=== PATIENT | female | born 1975 | race Caucasian/White ===

== ENCOUNTER 2017-12-16 16:11 | Emergency (ER) | payer OTHER ==
[2017-12-16 16:18] VITALS: BP 109/81
== END 2017-12-16 17:43 | disposition left against medical advice (07) ==
LOC: ED 16:11
DX: R10.9 Unspecified abdominal pain (principal); R11.10 Vomiting, unspecified; Z53.21 Procedure and treatment not carried out due to patient leaving prior to being seen by health care provider

== ENCOUNTER 2017-12-24 04:22 | Inpatient (IN) | payer OTHER ==
[2017-12-24] MEDS ORDERED: NS 0.9% 1000 ML* 1,000 ML IV ONE ×2 (04:40→10:07)
[2017-12-24] MEDS ORDERED: Metoclopramide IV* 5 MG/ML 2 ML VIAL IV SLOW PU ONE (04:41)
[2017-12-24] MEDS ORDERED: Morphine INJ* 4 MG/ML 1 ML SYRINGE (NEW SYRINGE VERSION) IV ONE (04:41)
--- NOTE | 2017-12-24 04:45 | ED ---
Abdominal Pain/Female - HPI Summary HPI Summary: This patient is a 42 year old F BIBA to [facility] with a chief complaint of cramping RLQ abd pain since 1 day ago. The patient reports that the pain worsened in the last 24 hours. She notes that the pain is constant with waves of worsening pain. Patient notes that she was seen at [facility] on 12/16/17 for similar symptoms but left AMA. The patient rates the pain 6/10 in severity. Symptoms aggravated by nothing. Symptoms alleviated by nothing. Patient reports nausea. Patient denies vomiting or back pain. LNMP was 20 days ago. Patient notes that she does not take control and that her period is typically very irregular. - History of Current Complaint Chief Complaint: EDAbdPain Stated Complaint: ABD PAIN Time Seen by Provider: 12/24/17 04:26 Hx Obtained From: Patient Onset/Duration: Gradual Onset, Lasting Days - 1 day, Still Present Timing: Constant Severity Initially: Moderate Severity Currently: Moderate Pain Intensity: 6 Pain Scale Used: 0-10 Numeric Location: Discrete At: RLQ Radiates: No Character: Cramping Aggravating Factor(s): Nothing Alleviating Factor(s): Nothing Associated Signs and Symptoms: Positive: Nausea. Negative: Back Pain, Vomiting Allergies/Adverse Reactions: Allergies Allergy/AdvReac Type Severity Reaction Status Date / Time Penicillins Allergy Rash Verified 12/16/17 16:18 Home Medications: Home Medications NK [No Home Medications Reported] 12/24/17 [History Confirmed 12/24/17] PMH/Surg Hx/FS Hx/Imm Hx Opthamlomology History: Denies: Hx Legally Blind EENT History: Denies: Hx Deafness - Surgical History Surgery Procedure, Year, and Place: none Infectious Disease History: No Infectious Disease History: Denies: Traveled Outside the [place] in Last 30 Days - Family History Known Family History: Negative: Seizure Disorder - Social History Alcohol Use: Occasionally Substance Use Type: Reports: None Smoking Status (MU): Never Smoked Tobacco Review of Systems Negative: Epistaxis Negative: Chest Pain Negative: Cough Positive: Abdominal Pain - RLQ, Nausea. Negative: Vomiting Negative: Rash All Other Systems Reviewed And Are Negative: Yes Physical Exam - Summary Physical Exam Summary: VITAL SIGNS: Reviewed. GENERAL: Patient is a well-developed and nourished FEMALE who is lying comfortable in the stretcher. Patient is not in any acute respiratory distress. HEAD AND FACE: No signs of trauma. No ecchymosis, hematomas or skull depressions. No sinus tenderness. EYES: PERRLA, EOMI x 2, No injected conjunctiva, no nystagmus. EARS: Hearing grossly intact. Ear canals and tympanic membranes are within normal limits. MOUTH: Oropharynx within normal limits. NECK: Supple, trachea is midline, no adenopathy, no JVD, no carotid bruit, no c- spine tenderness, neck with full ROM. CHEST: Symmetric, no tenderness at palpation LUNGS: Clear to auscultation bilaterally. No wheezing or crackles. CVS: Regular rate and rhythm, S1 and S2 present, no murmurs or gallops appreciated. ABDOMEN: Soft, RLQ tenderness and rebound. No signs of distention. No guarding, and no masses palpated. Bowel sounds are normal. EXTREMITIES: FROM in all major joints, no edema, no cyanosis or clubbing. NEURO: Alert and oriented x 3. No acute neurological deficits. Speech is normal and follows commands. SKIN: Dry and warm Triage Information Reviewed: Yes Vital Signs On Initial Exam: Initial Vitals Pulse BP Pulse Ox 83 131/82 100 12/24/17 04:28 12/24/17 04:28 12/24/17 04:28 Vital Signs Reviewed: Yes Diagnostics - Vital Signs Vital Signs Temp Pulse Resp BP Pulse Ox 12/24/17 04:31 98.6 F 80 16 131/82 100 12/24/17 04:30 81 100 12/24/17 04:28 83 131/82 100 - Laboratory Result Diagrams: 12/24/17 04:59 12/24/17 04:59 Lab Statement: Any lab studies that have been ordered have been reviewed, and results considered in the medical decision making process. - CT CT Abd/Pelvis CT Interpretation: Positive (See Comments) - IMPRESSION: Mesenteric haziness in the right lower quadrant of the abdomen suggesting inflammation or edema. Pelvic inflammatory disease would be a consideration. Small amount of ascites in the cul-de-sac. The appendix is not clearly delineated. Mildly enlarged liver. Low-density lesion in right adnexa could represent an ovary or possibly abscess. Dr. Jolly has reviewed this report. CT Interpretation Completed By: Radiologist Abdominal Pain Fem Course/Dx - Course Course Of Treatment: This patient is a 42 year old F reporting constant cramping RLQ abd pain. CT Abd/Pelvis reveals, per radiologist, mesenteric haziness in the right lower quadrant of the abdomen suggesting inflammation or edema. Pelvic inflammatory disease would be a consideration. Small amount of ascites in the cul-de-sac. The appendix is not clearly delineated. Mildly enlarged liver. Low-density lesion in right adnexa could represent an ovary or possibly abscess. ED physician has reviewed this radiology report. Test results with no significant abnormalities except for elevated WBC. In the ED course the patient was given IV fluids, morphine, and Reglan. We discussed patient care with Dr. Greenfield, surgeon, at 06:31 and they agreed to come see the patient in the ED. Pt is signed out to Dr. Mosquera from Dr. Jolly upon provider shift change pending consultation and disposition. - Diagnoses Provider Diagnoses: Abdominal pain - Provider Notifications Discussed Care Of Patient With: August Greenfield Time Discussed With Above Provider: 06:31 Instructed by Provider To: MD Will See In ED Discharge - Sign-Out/Discharge Documenting (check all that apply): Sign-Out Patient - to Dr. Mosquera from Dr. Jolly upon provider shift change Signing out patient TO: Luis Daniel Mosquera - Discharge Plan Condition: Stable Referrals: [facility] [Outside] - Attestation Statements Document Initiated by Scribe: Yes Documenting Scribe: Becki Tony Provider For Whom Scribe is Documenting (Include Credential): Jose Ramon Jolly MD Scribe Attestation: Becki De Dios, scribed for Jose Ramon Jolly MD on 12/24/17 at 0649.
[2017-12-24 05:07] LABS: Hematocrit 40 % (35-47); Hemoglobin 13.5 g/dl (12.0-16.0); Mean Corpuscular HGB Conc 34 g/dl (31-36); Mean Corpuscular Hemoglobin 31 pg (27-31); Mean Corpuscular Volume 91 fL (80-97); Mean Platelet Volume 7.8 um3 (7.4-10.4); Platelet Count 177 10^3/ul (150-450); Red Cell Distribution Width 12 % (10.5-15)
[2017-12-24 05:24] LABS: EGFR Non-African American 87.9 (>60)
[2017-12-24] MEDS ORDERED: Iohexol 300* (CONTRAST) 10 ML SDV IV ONE (05:44)
[2017-12-24 05:56] LABS: ABS Basophils 0 10^3/ul (0-0.2); ABS Neutrophils 14.8 10^3/ul (1.5-7.7); ABS Neutrophils 15.1 10^3/ul (1.5-7.7); Monocytes % 1 % (0-7)
--- NOTE | 2017-12-24 06:48 | RAD ---
EXAM: CT Abdomen and Pelvis With Intravenous Contrast EXAM DATE/TIME: 12/24/2017 5:56 AM CLINICAL HISTORY: 42 years old, female; Pain; Abdominal pain; Additional info: Abd pain/ap TECHNIQUE: Axial computed tomography images of the abdomen and pelvis with intravenous contrast. All CT scans at this facility use at least one of these dose optimization techniques: automated exposure control; mA and/or kV adjustment per patient size (includes targeted exams where dose is matched to clinical indication); or iterative reconstruction. Coronal and sagittal reformatted images were created and reviewed. CONTRAST: 87 ml of OMNI 300 administered intravenously. COMPARISON: No relevant prior studies available. FINDINGS: Lower thorax: No acute findings. ABDOMEN: Liver: The liver is mildly enlarged measuring approximately 18.7 cm. Gallbladder and bile ducts: Normal. No calcified stones. No ductal dilation. Pancreas: Normal. No ductal dilation. Spleen: Normal. No splenomegaly. Adrenals: Normal. No mass. Kidneys and ureters: Normal. No hydronephrosis. Stomach and bowel: Normal. No obstruction. No mucosal thickening. Appendix: The appendix is not clearly delineated. PELVIS: Bladder: Unremarkable as visualized. Reproductive: There is a low density structure in the right adnexa measuring approximately 1.2 x 2.2 cm in size on axial images 63-65, series 2. ABDOMEN and PELVIS: Intraperitoneal space: Small amount of fluid is seen in the cul-de-sac. There is abnormal increased haziness of the mesentery in the right lower quadrant of the abdomen suggesting inflammatory or edematous change. Bones/joints: There is narrowing of the intervertebral disc space at L4-5. There is sacralization of the fifth lumbar vertebral body with narrowing of the intervertebral disc space. Soft tissues: Unremarkable. Vasculature: Normal. No abdominal aortic aneurysm. Lymph nodes: A couple of small mesenteric lymph nodes are present within the larger one having a short axis diameter of 8 mm. No enlarged lymph nodes. IMPRESSION: Mesenteric haziness in the right lower quadrant of the abdomen suggesting inflammation or edema. Pelvic inflammatory disease would be a consideration. Small amount of ascites in the cul-de-sac. The appendix is not clearly delineated. Mildly enlarged liver. Low-density lesion in right adnexa could represent an ovary or possibly abscess. To contact [facility] with a general question: [facility] - [phone] For direct physician to physician contact: Physician Hotline - [phone] [facility] ([facility] Facility ID #[id number])
[2017-12-24] MEDS ORDERED: cefTRIAXone(*) 1 GM in NS 0.9% 50 ML* 50 ML IVPB ONE (06:51)
[2017-12-24] MEDS ORDERED: metroNIDAZOLE IV 500 MG/100ML* 500 MG/100 ML BAG IVPB ONE (06:51)
--- NOTE | 2017-12-24 07:18 | ED ---
Progress - Progress Note Progress Note: This pt was signed out by Dr. Jolly at shift change, pending disposition, awaiting abdomen US and surgery consult. Transvaginal US, as read by radiologist IMPRESSION: Dr. Mosquera has reviewed this report. Course/Dx - Diagnoses Provider Diagnoses: Abdominal pain - Provider Notifications Discussed Care Of Patient With: August Greenfield Time Discussed With Above Provider: 06:31 Instructed by Provider To: MD Will See In ED Discharge - Sign-Out/Discharge Documenting (check all that apply): Patient Departure - Discharge Plan Condition: Stable Disposition: HOME Referrals: [facility] [Outside] - Billing Disposition and Condition Condition: STABLE Disposition: Home - Attestation Statements Document Initiated by Scribe: Yes Documenting Scribe: Sylvia Cortez Provider For Whom Dottie is Documenting (Include Credential): Luis Daniel Mosquera MD Scribe Attestation: Sylvia De Dios, scribed for Luis Daniel Mosquera MD on 12/24/17 at 0748. Scribe Documentation Reviewed: Yes Provider Attestation: The documentation as recorded by the Sylvia geronimo accurately reflects the service I personally performed and the decisions made by me, Luis Daniel Mosquera MD
[2017-12-24 08:03] LABS: Urine Appearance Clear; Urine Blood Negative (Negative); Urine Color Yellow; Urine Ketones 1+ (Negative); Urine Protein Negative (Negative); Urine Specific Gravity > 1.060 (1.010-1.030); Urine Urobilinogen Negative (Negative)
--- NOTE | 2017-12-24 08:20 | RAD ---
HISTORY: PID COMPARISONS: CT dated December 24, 2017 TECHNIQUE: Multiple transverse and longitudinal ultrasound images were obtained of the pelvis using grayscale, color Doppler, and spectral Doppler imaging using the endovaginal transducer. FINDINGS: UTERUS: The uterus measures 8.9 x 3.6 x 5.2 cm. The uterus is normal in shape, size, contour, and echotexture. ENDOMETRIUM: The endometrial stripe is smooth. The endometrium measures 0.9 cm in thickness. CUL-DE-SAC: There is simple free fluid within the pelvis. RIGHT OVARY: The right ovary measures 2.7 x 2.4 x 2.9 cm. Normal arterial and venous waveforms are identifiable within the ovary on spectral Doppler imaging. There is complex cystic and solid structure adjacent to the right ovary measuring 2.9 x 1.3 x 2.4 cm in size. There is no internal vascularity. LEFT OVARY: The left ovary measures 2.9 x 2.4 x 1.9 cm. Normal arterial and venous waveforms are identifiable within the ovary on spectral Doppler imaging. Several follicles are noted. BLADDER: The bladder is not well visualized. OTHER: None IMPRESSION: THERE IS SIMPLE FREE FLUID WITHIN THE PELVIS. THERE IS COMPLEX CYSTIC AND SOLID STRUCTURE ADJACENT TO THE RIGHT OVARY WITHOUT INTERNAL VASCULARITY MEASURING 2.9 CM IN SIZE. WHILE THIS MAY REPRESENT AN INVOLUTING FOLLICLE, ABSCESS IS ALSO WITHIN THE DIFFERENTIAL IN THE CORRECT CLINICAL SETTING, THOUGH THERE IS NO PERIPHERAL VASCULARITY. THESE FINDINGS WERE REVIEWED WITH DR. BLAKE AT APPROXIMATELY 8:17 AM ON DECEMBER 25, 2019
--- NOTE | 2017-12-24 08:27 | ED ---
Progress - Progress Note Progress Note: PRIOR PROGRESS NOTE WAS SIGNED BY MISTAKE This pt was signed out by Dr. Jolly at shift change, pending disposition, awaiting abdomen US and surgery consult. HPI: Pt is a 42 y/o female presenting to [facility] c/o abdominal pain since yesterday morning. Pt reports her pain initially was diffusely located in her abdomen which then localized to the right lower quadrant throughout the day. She states her pain initially was not too bad and went to work. Pt did have lunch yesterday. By the end of the day yesterday she didn't feel great, with increased pain and low grade fever. Around 04:00 today pt had nausea and vomiting. Pt states her pain worsened and was not able to sleep well; she decided to come at 04:00 to the ED. She notes her pain was "not terrific as child but it's up there." Currently she rates her pain 7/10 in severity. LMP: 3 weeks ago. She denies vaginal discharge, vaginal bleeding. Pt is sexually active with only one partner. Denies hx of STDs. Physical Exam: VITAL SIGNS: Reviewed. GENERAL: Patient is a well-developed and nourished female. Patient is not in any acute respiratory distress. HEAD AND FACE: Normocephalic and atraumatic. EYES: PERRLA, EOMI x 2, No injected conjunctiva. EARS: Hearing grossly intact. Ear canals and tympanic membranes are WNL. MOUTH: Oropharynx within normal limits. NECK: Supple, trachea is midline, no adenopathy, no JVD. CHEST: Symmetric, no tenderness at palpation LUNGS: Clear to auscultation bilaterally. No wheezing or crackles. CVS: RRR, S1 and S2 present, no murmurs or gallops appreciated. ABDOMEN: Soft, tenderness in the right lower quadrant. No signs of distention. Positive bowel sounds. No rebound no guarding, and no masses palpated. No abdominal bruit or pulsations. VOCATIONAL EDUCATION TEACHER: Female social work manager, VALERIO Oneill, is present during the examination. External genitalia: within normal limits. No rashes, lesions or ecchymosis. Speculum exam: Pt has white vaginal discharge. Cervix normal. No CMTs. Could not palpate adnexal masses. All cultures were collected and send to the lab. EXTREMITIES: FROM in all major joints, no edema, no cyanosis or clubbing. NEURO: Alert and oriented x 3. No acute neurological deficits. Speech is normal. SKIN: Dry and warm Transvaginal US, as read by radiologist IMPRESSION: THERE IS SIMPLE FREE FLUID WITHIN THE PELVIS. THERE IS COMPLEX CYSTIC AND SOLID STRUCTURE ADJACENT TO THE RIGHT OVARY WITHOUT INTERNAL VASCULARITY MEASURING 2.9 CM IN SIZE. WHILE THIS MAY REPRESENT AN INVOLUTING FOLLICLE, ABSCESS IS ALSO WITHIN THE DIFFERENTIAL IN THE CORRECT CLINICAL SETTING, THOUGH THERE IS NO PERIPHERAL VASCULARITY. THESE FINDINGS WERE REVIEWED WITH DR. MOSQUERA AT APPROX 8:17 AM ON DECEMBER 24, 2017. Re-Evaluation - Re-Evaluation First Eval Re-Evaluation Time: 08:49 Comment: Dr. Howard, radiologist, calls to report US results. Second Eval Re-Evaluation Time: 08:49 Comment: Dr. Greenfield, surgeon, calls and reports he wants a pelvic exam done on the pt. Third Eval Re-Evaluation Time: 09:21 Comment: Dr. Greenfield, surgeon, was paged. Fourth Eval Re-Evaluation Time: 09:24 Comment: I discussed with Dr. Ayala, VOCATIONAL EDUCATION TEACHER, who will come see pt in the ED. Fifth Eval Re-Evaluation Time: 09:49 Comment: Dr. Greenfield, surgeon, was called on his cellphone. Sixth + Eval Re-Evaluation Time: 09:55 Comment: Dr. Ayala, VOCATIONAL EDUCATION TEACHER, in to see the pt in the ED. Seventh Eval Re-Evaluation Time: 10:37 Comment: Dr. Ni, surgeon, was paged. Eighth Eval Re-Evaluation Time: 10:42 Comment: Dr. Ni returns call and reports he will come see the pt in the ED. Ninth Eval Re-Evaluation Time: 10:50 Comment: Surgical associate, Ms. Merchant, in to see the pt. Course/Dx - Course Course Of Treatment: Patient is signed out by Dr. Jolly at shift change. He reports that the patient came in complaining of right lower quadrant pain. He reports that that the abdominopelvic CT was inconclusive for appendicitis therefore he ordered a transvaginal ultrasound which is pending. He also reports that he discussed the case with Dr. Greenfield from surgery who will consult for this patient. I interviewed and examined the patient and she is a 42 y/o female presenting to [facility] c/o abdominal pain since yesterday morning. Pt reports her pain initially was diffusely located on her abdomen which then localized in the right lower quadrant throughout the day. She states her pain initially was not too bad and went to work. Pt did have lunch yesterday. By the end of the day yesterday she didn't feel great, with increased pain and low grade fever. Around 04:00 today pt had nausea and vomiting. She notes her pain was "not terrific as child but it's up there." Currently she rates her pain 7/10 in severity. LMP: 3 weeks ago. She denies vaginal discharge, vaginal bleeding. Pt is sexually active with only one partner. Denies hx of STDs. I performed a pelvic exam. Please see physical exam. Transvaginal ultrasound IMPRESSION: THERE IS SIMPLE FREE FLUID WITHIN THE PELVIS. THERE IS COMPLEX CYSTIC AND SOLID STRUCTURE ADJACENT TO THE RIGHT OVARY WITHOUT INTERNAL VASCULARITY MEASURING 2.9 CM IN SIZE. WHILE THIS MAY REPRESENT AN INVOLUTING FOLLICLE, ABSCESS IS ALSO WITHIN THE DIFFERENTIAL IN THE CORRECT CLINICAL SETTING, THOUGH THERE IS NO PERIPHERAL VASCULARITY. At this time I discussed my physical exam, findings of the ultrasound and CAT scan with Dr. Ayala from VOCATIONAL EDUCATION TEACHER and he came and examined the patient. He also reviewed the abdominal pelvic CT and ultrasound. He thinks that the patient doesn't have any tubo- ovarian abscess and he thinks that the possibility of an appendicitis is high. Therefore he discussed case with Dr. Ni from surgery who will consult for this patient. I also discussed the case with Dr. Ni and he reports that his PA will see the patient. After Ms. Merchant, the physician legal assistant for Dr. Ni, examined the patient and she discussed the case with Dr. Ni, they accepted the patient for admission. I also added 2 liters of IV fluids and I added clindamycin and cefepime. I also examined the patient again and she seems to be in more pain, therefore I am worried that the patient may be having worsening symptoms. I made aware of my findings to the physician legal assistant from Dr. Ni. - Diagnoses Provider Diagnoses: Right lower quadrant abdominal pain, Acute appendicitis - Provider Notifications Discussed Care Of Patient With: Florencio Howard Time Discussed With Above Provider: 08:15 Instructed by Provider To: Other - Dr. Howard, radiologist, reports ultrasound results. [08:49] Dr. Greenfield, surgeon, wants a pelvic exam done on the pt. [09: 24] I discussed case with Dr. Ayala, VOCATIONAL EDUCATION TEACHER, who will come see the pt in the ED. [10:48] I discussed with Dr. Ni, surgeon, who will consult on the pt. Discharge - Sign-Out/Discharge Documenting (check all that apply): Patient Departure - Admit to [facility], Receiving Sign-Out Receiving patient FROM: [facility] - Discharge Plan Condition: Stable Disposition: ADMITTED TO [facility] - Billing Disposition and Condition Condition: STABLE Disposition: Admitted to [facility] - Attestation Statements Document Initiated by Dottie: Yes Documenting Scribe: Sylvia Cortez Provider For Whom Dottie is Documenting (Include Credential): Luis Daniel Mosquera MD Scribe Attestation: Lanre, Sylvia Cortez, scribed for Luis Daniel Mosquera MD on 12/25/17 at 0835. Scribe Documentation Reviewed: Yes Provider Attestation: The documentation as recorded by the Sylvia geronimo accurately reflects the service I personally performed and the decisions made by me, Luis Daniel Mosquera MD
[2017-12-24] MEDS ORDERED: Acetaminophen SUPP* 650 MG SUPP PR ONE (10:31)
[2017-12-24 10:52] LABS: ABS Basophils 0 10^3/ul (0-0.2); ABS Eosinophils 0 10^3/ul (0-0.6); ABS Lymphocytes 0.7 10^3/ul (1.0-4.8); ABS Monocytes 1.5 10^3/ul (0-0.8); ABS Nucleated RBC 0 10^3/ul; Eosinophil % 0.2 % (0-6); Lymphocyte % 4.1 % (25-47); Nucleated Red Blood Cells % 0
[2017-12-24] MEDS ORDERED: NS 0.9% 1000 ML* 2,000 ML IV ONE (11:02)
[2017-12-24] MEDS ORDERED: Clindamycin 900 MG IVPREMIX(* 900 MG/50 ML SDV IV ONE (11:02)
[2017-12-24] MEDS ORDERED: HYDROmorphone INJ1* 1 MG/ML SYRINGE IV PRN (11:09)
[2017-12-24] MEDS ORDERED: NS 0.9% 1000 ML* 1,000 ML IV SCH (11:15)
[2017-12-24] MEDS ORDERED: Acetaminophen SUPP* 650 MG SUPP PR PRN (11:16)
--- NOTE | 2017-12-24 12:40 | HP ---
CC: Dr. [facility] DATE OF ADMISSION: 12/24/2017. This patient was seen in the [facility] Emergency Department on Sunday, December 24, 2017. ATTENDING SURGEON: Dr. Satnam Ni* (dictated by Carmen Merchant NP). CHIEF COMPLAINT: Worsening abdominal pain. HISTORY OF PRESENT ILLNESS: The patient is a 42-year-old female who came to the [facility] Emergency Department at 4 o'clock this morning complaining of abdominal pain that was initially generalized over the lower abdomen and then became more localized to the right lower quadrant over the past 24 hours. Yesterday, she was able to go to work and ate lunch, but felt poorly. She has three small formed bowel movements yesterday. She reports that about one week ago she thought she had food poisoning after eating some hummus. She went to [facility], but while she was waiting her abdominal pain subsided and she left AMA. At present, when she is at rest, she describes her pain level at 2, but with any movement it does up to an 8. Her white blood count in the emergency room is 17 with a left shift. Urine is clear and negative for esterase. Electrolytes are within normal limits and test is negative. She had an exam by Dr. Ayala who called Dr. Ni as Dr. Ayala felt that review of her scans and transvaginal ultrasound were likely more consistent with acute appendicitis. The CAT scan of the abdomen and pelvis revealed abnormal mesenteric haziness in the right lower quadrant suggestive of inflammation or edema change and the appendix was not clearly delineated. Transvaginal ultrasound revealed a complex cystic and solid structure adjacent to the right ovarian measuring 2.9 cm in size with a question of abscess or involuting follicle. I reviewed the findings with Dr. Ni who has also reviewed the imaging. The patient will be admitted to the Surgical Stay Unit and then today she will have diagnostic laparoscopy with possible appendectomy. Her last menstrual period was three weeks ago, she states that her periods are irregular. She is sexually active with one partner and is not on any type of control. She denies any vaginal discharge or bleeding and denies any history of STD's. PAST MEDICAL HISTORY: Generally healthy. No acute or chronic conditions. She has not established primary care as she just moved here from [place] a few months ago. She denies any history of previous blood transfusions. She denies a history of deep vein thrombosis or pulmonary embolism. PAST SURGICAL HISTORY: None. OB HISTORY: 1, para 1. No miscarriages, no abortions. Last pelvic exam approximately one year ago. CURRENT MEDICATIONS: None. ALLERGIES: PENICILLIN CAUSED SEVERE RASH. FAMILY HISTORY: Mother alive and well in her 70s. Father alive with a history of heart disease. No known family history of appendicitis, diverticulitis, colitis, or stomach ulcers. 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 She is a nonsmoker. She occasionally drinks alcohol. She has one child, age 8 and she just moved here a few months ago from [place], [place]. REVIEW OF SYSTEMS: Constitutional: Low grade fever and occasional chills. No weight loss or excessive fatigue. Respiratory: No dyspnea on exertion. No chronic cough. Cardiovascular: No anginal chest pain or palpitations. Gastrointestinal: As described in history of present illness. She has been nauseated and has had one episode of vomiting in the emergency department, and about one week ago she had vomiting at home, thought to be related to food poisoning. She denies any chronic problems with diarrhea or constipation, and had three small bowel movements yesterday. Genitourinary: No dysuria. No vaginal discharge, no vaginal bleeding. Last menstrual period three weeks ago. Musculoskeletal: No joint or back pain. Neurologic: No headache or blurred vision. No areas of numbness or focal weakness. General: No history of blood transfusions. No history of deep vein thrombosis or pulmonary embolism. PHYSICAL EXAMINATION GENERAL: The patient is a 42-year-old female, well-developed, well-nourished, obviously uncomfortable due to abdominal pain. VITAL SIGNS: Height 5'7", weight 143 pounds, body mass index 22.4. Blood pressure was as low as 95/61 and is currently 115/63 after some IV fluids. Heart rate 83, respiratory rate 18, temperature maximum 100.4 p.r., O2 saturation on room air 100 percent. SKIN: Warm, dry, intact. HEENT: Benign. NECK: Supple. No cervical lymphadenopathy. No supraclavicular lymphadenopathy. LUNGS: Breath sounds bilaterally clear and equal. HEART: Regular rate and rhythm. No murmurs or rubs appreciated. ABDOMEN: Quiet, soft, nondistended. Exquisitely tender over the lower abdomen with more severe tenderness in the right lower quadrant. Positive guarding. Positive rebound tenderness. No obvious masses or organomegaly, but exam is limited by patient's discomfort. EXTREMITIES: Warm without edema or skin ulcerations. PELVIC: Exam done by Dr. Ayala. RECTAL: Deferred. NEUROLOGIC: Alert and oriented times three. Steady gait. IMPRESSION: Worsening abdominal pain, possible acute appendicitis. PLAN: Discussed with Dr. Ni. The patient will be taken to the operating room today for diagnostic laparoscopy and possible appendectomy. She will be NPO and maintained on IV fluid resuscitation and IV antibiotics. She will have pain medication and antiemetic available as needed. The plan of care was discussed with the patient and she gave verbal agreement. TIME SPENT: 60 minutes with greater than 50 percent in [id number] history taking and coordination of care. JEROD MERCHANT NP [id number]/[facility] #: [id number] SANA
[2017-12-24] MEDS ORDERED: Buffered Lidocaine 0.9% SYRIN* 5 ML/SYR SYRINGE INTRADERM ONE (13:02)
[2017-12-24] MEDS ORDERED: Lidocaine 2% PF * 5 ML VIAL ONE ×3 (13:35→15:06)
[2017-12-24] MEDS ORDERED: Propofol* 10 MG/ML 20 ML BTL IV PUSH ONE (13:35)
[2017-12-24] MEDS ORDERED: Succinylcholine* 20 MG/ML 10 ML VIAL ONE (13:35)
[2017-12-24] MEDS ORDERED: Bupivacaine 0.25% EPI 200,000* 30 ML SDV ONE (13:35)
[2017-12-24] MEDS ORDERED: Midazolam* 1 MG/ML 2 ML VIAL (2 MG) ONE (13:37)
[2017-12-24] MEDS ORDERED: fentaNYL* 50 MCG/ML 2 ML VIAL (100 MCG VIAL) ONE (13:37)
[2017-12-24] MEDS ORDERED: Famotidine IV* 10 MG/ML 2 ML (20 mg) ONE (13:49)
[2017-12-24] MEDS ORDERED: Metoclopramide IV* 5 MG/ML 2 ML VIAL ONE (13:49)
[2017-12-24] MEDS ORDERED: EPHEDrine (Pressors)* 50 MG/ML VIAL ONE (14:08)
[2017-12-24] MEDS ORDERED: Acetaminophen IV 1GM/100ML * 1,000 MG/100 ML VIAL IVPB ONE (14:54)
[2017-12-24] MEDS ORDERED: Naloxone* 0.4 MG/ML 1 ML VIAL IV PRN (14:54)
[2017-12-24] MEDS ORDERED: Ciprofloxacin 400MG IVPREMIX(* 400 MG/200 ML BAG IVPB SCH ×2 (15:00→16:00)
[2017-12-24] MEDS ORDERED: Ketorolac INJ* 30 MG/ML 1 ML VIAL ONE (15:06)
[2017-12-24] MEDS ORDERED: Acetaminophen IV 1GM/100ML * 100 ML ONE (16:29)
[2017-12-24] MEDS ORDERED: Ondansetron INJ* 2 MG/ML VIAL ONE (16:29)
[2017-12-24] MEDS: Ondansetron INJ* 2 MG/ML VIAL IV PRN (16:50)
[2017-12-24] MEDS: Ketorolac INJ* 30 MG/ML 1 ML VIAL IV PUSH SCH ×2 (17:55→22:29)
[2017-12-24] MEDS: metroNIDAZOLE IV 500 MG/100ML* 500 MG/100 ML BAG IVPB SCH (17:58)
[2017-12-24] MEDS: oxyCODONE/Acetamin 5/325 MG* TAB PO PRN (19:00)
[2017-12-24] MEDS: Ciprofloxacin 400MG IVPREMIX(* 400 MG/200 ML BAG IVPB SCH (20:39)
[2017-12-24] MEDS: NS 0.9% 1000 ML* 1,000 ML IV SCH (22:33)
[2017-12-25] MEDS: metroNIDAZOLE IV 500 MG/100ML* 500 MG/100 ML BAG IVPB SCH ×3 (00:05→17:42)
[2017-12-25] MEDS: oxyCODONE/Acetamin 5/325 MG* TAB PO PRN ×2 (00:11→18:34)
[2017-12-25] MEDS: Ketorolac INJ* 30 MG/ML 1 ML VIAL IV PUSH SCH ×4 (04:03→21:55)
[2017-12-25 05:34] LABS: ABS Basophils 0 10^3/ul (0-0.2); ABS Eosinophils 0 10^3/ul (0-0.6); ABS Lymphocytes 0.4 10^3/ul (1.0-4.8); ABS Monocytes 1.2 10^3/ul (0-0.8); ABS Neutrophils 14.9 10^3/ul (1.5-7.7); ABS Nucleated RBC 0 10^3/ul; Eosinophil % 0 % (0-6); Hematocrit 34 % (35-47); Hemoglobin 11.6 g/dl (12.0-16.0); Lymphocyte % 2.7 % (25-47); Mean Corpuscular HGB Conc 35 g/dl (31-36); Mean Corpuscular Hemoglobin 31 pg (27-31); Mean Corpuscular Volume 91 fL (80-97); Nucleated Red Blood Cells % 0; Platelet Count 140 10^3/ul (150-450); Red Blood Count 3.71 10^6/ul (4.00-5.40); Red Cell Distribution Width 13 % (10.5-15); White Blood Count 16.6 10^3/ul (3.5-10.8)
[2017-12-25 05:46] LABS: EGFR Non-African American 121.8 (>60)
--- NOTE | 2017-12-25 06:20 | OP ---
CC: Satnam Ni MD OPERATIVE REPORT: DATE OF OPERATION: 12/24/17 DATE OF : 77 SURGEON: Satnam Ni MD APNS: Mayur. ANESTHESIOLOGIST: Dr. Gonzales. ANESTHESIA: General anesthetic. Local infiltration by the surgeon. PRE-OP DIAGNOSIS: Appendicitis with abscess. POST-OP DIAGNOSIS: Appendicitis with abscess. OPERATIVE PROCEDURE: Laparoscopic appendectomy with drainage of abscess. DESCRIPTION OF PROCEDURE: The patient was supine on the operative table. After adequate general ane sthetic, compression stockings, Estephania Hugger warmer, and intravenous antibiotics have been given, the abdomen was prepped and draped in a sterile fashion. Local infiltrative anesthesia was administered. A small umbilical incision was created. A blunt port cannula was placed. Insufflation was carried out with carbon dioxide. Additional cannulae, 5 mm, left lower abdomen and left mid abdomen were pl aced through small stab wounds under direct vision. There was an obvious inflammatory mass in the ri t lower quadrant. This encompassed the right fallopian tube and ovary, the terminal ileum, and the base of the cecum. Ultimately, the terminal ileum was peeled up, revealed an abscess cavity. Pus wa s suctioned out and captured in a trap and sent for culture. The abscess was then well evacuated and the cecum mobilized upward. The appendix was identified. The mesoappendix was divided using a bolanos load stapler and the base of the appendix with a purple load stapler. This was very inflammatory an d parth from the inflammation, but it appeared to be adequate closure. The operative field was well irrigated with 2 L of warm saline solution, a ANDRZEJ drainage was brought out through the left lower quad rant incision and placed down towards the pelvis and right lower quadrant, and sutured the skin with 3-0 Prolene. The umbilical fascia was closed with 0 Vicryl and the skin with 5-0 Vicryl, followed by Steri-Strips. She tolerated the procedure well, was awakened and extubated, brought to Recovery in good condition, no complications. Drain is Osvaldo-Callahan. Sponge and instrument counts correct. Es timated blood loss was 30 to 50 mL. Specimens were appendix and cultures. [id number]/[facility] #: [id number]
[2017-12-25] MEDS: NS 0.9% 1000 ML* 1,000 ML IV SCH (06:27)
[2017-12-25] MEDS: Ciprofloxacin 400MG IVPREMIX(* 400 MG/200 ML BAG IVPB SCH ×2 (07:41→19:36)
[2017-12-25] MEDS: Acetaminophen TAB* 325 MG PO PRN (07:41)
[2017-12-25] MEDS ORDERED: NS 0.9% 1000 ML* 1,000 ML IV SCH (09:44)
--- NOTE | 2017-12-25 09:47 | PN ---
Progress Note - Progress Note Date of Service: 12/25/17 Note: POD#1 s/p appendiceal abscess Afeb, VS OK UO OK ANDRZEJ 50 ml serosang La PO's Abd soft, min tender On cipro/flagyl, await C&S PO's as la Decrease IVF
[2017-12-26] MEDS: metroNIDAZOLE IV 500 MG/100ML* 500 MG/100 ML BAG IVPB SCH ×4 (00:18→23:54)
[2017-12-26] MEDS: oxyCODONE/Acetamin 5/325 MG* TAB PO PRN ×3 (01:37→22:31)
[2017-12-26] MEDS: Ketorolac INJ* 30 MG/ML 1 ML VIAL IV PUSH SCH ×2 (04:04→09:32)
[2017-12-26] MEDS: Acetaminophen TAB* 325 MG PO PRN (08:12)
--- NOTE | 2017-12-26 09:05 | PN ---
Progress Note - Progress Note Date of Service: 12/26/17 SOAP: Subjective: Doing well-slept well last night Tolerating po, passing flatus Pain well controlled Ambulating in halls Objective: Temp Pulse Resp BP Pulse Ox 98.0 F 66 16 103/58 98 12/26/17 07:22 12/26/17 07:22 12/26/17 08:00 12/26/17 07:22 12/26/17 08:00 Intake & Output 12/24/17 12/25/17 12/26/17 12/27/17 06:59 06:59 06:59 06:59 Intake Total 3438 1070 Output Total 900 1011 Balance 2538 59 Weight 143 lb Intake: IV Fluids 2358 320 ABX - CIPROFLOXACIN 208 210 ABX - FLAGYL 210 110 LR 800 NS (0.9%) 990 Oral 1080 750 Output: ANDRZEJ #1 50 91 ANDRZEJ #2 20 Urine 850 900 Other: Estimated Void Medium # Voids 1 PEX: Comfortable Lungs are clear Abd is soft and non-distended. Bowel sounds are present, normoactive. Dressings intact. ANDRZEJ with minimal serosanguinous drainage. Ext without edema Cultures noted Assessment: POD# 2 s/p lap appy, drainage of abscess for perforated appendicitis Plan: IV abx ANDRZEJ drain Advance diet, d/c IVF Subq heparin Increase activity D/C next 24 -48 hrs if continued improvement. Check CBC in AM
[2017-12-26] MEDS: Ciprofloxacin 400MG IVPREMIX(* 400 MG/200 ML BAG IVPB SCH ×2 (09:32→20:50)
[2017-12-26] MEDS: Ondansetron INJ* 2 MG/ML VIAL IV PRN ×2 (12:40→22:31)
[2017-12-26 12:54] LABS: INR 1.11 (0.77-1.02)
[2017-12-26] MEDS: Heparin VIAL(*) 5000 UNITS/ML VIAL (FIVE THOUSAND) SUBCUT SCH ×2 (14:08→22:31)
[2017-12-27] MEDS: Acetaminophen TAB* 325 MG PO PRN ×3 (05:20→12:58)
[2017-12-27] MEDS: Heparin VIAL(*) 5000 UNITS/ML VIAL (FIVE THOUSAND) SUBCUT SCH (05:22)
[2017-12-27 05:55] LABS: ABS Basophils 0 10^3/ul (0-0.2); ABS Eosinophils 0.1 10^3/ul (0-0.6); ABS Monocytes 0.5 10^3/ul (0-0.8); ABS Neutrophils 4.9 10^3/ul (1.5-7.7); ABS Nucleated RBC 0 10^3/ul; Eosinophil % 1.1 % (0-6); Hematocrit 30 % (35-47); Hemoglobin 10.3 g/dl (12.0-16.0); Lymphocyte % 15.2 % (25-47); Mean Corpuscular HGB Conc 34 g/dl (31-36); Mean Corpuscular Hemoglobin 31 pg (27-31); Mean Corpuscular Volume 91 fL (80-97); Mean Platelet Volume 7.7 um3 (7.4-10.4); Nucleated Red Blood Cells % 0; Platelet Count 126 10^3/ul (150-450); Red Blood Count 3.33 10^6/ul (4.00-5.40); Red Cell Distribution Width 12 % (10.5-15); White Blood Count 6.5 10^3/ul (3.5-10.8)
[2017-12-27 06:17] LABS: EGFR Non-African American 106.1 (>60)
[2017-12-27] MEDS: metroNIDAZOLE IV 500 MG/100ML* 500 MG/100 ML BAG IVPB SCH (07:33)
[2017-12-27] MEDS: Ondansetron INJ* 2 MG/ML VIAL IV PRN (07:40)
[2017-12-27] MEDS: Ciprofloxacin 400MG IVPREMIX(* 400 MG/200 ML BAG IVPB SCH (08:50)
--- NOTE | 2017-12-27 09:08 | PN ---
Progress Note - Progress Note Date of Service: 12/27/17 SOAP: Subjective:POD#3 s/p lap appy(ruptured);mild nausea,no vomiting;had loose stool this am;no dysuria;eating regular diet,small amt;walking in halls;good pain control [] Objective:afeb;VSS;O2 sat 99%RA;lungs:clear bilat;heart:RRR;abd:+bs,soft, nondistended;incisions intact with steristrips,no erythema;ANDRZEJ drain intact, serosang;30-50ml/24h;ext:nontender,no edema Laboratory Results - last 24 hr 12/26/17 12/27/17 12/27/17 12:21 05:23 05:23 WBC 6.5 RBC 3.33 L Hgb 10.3 L Hct 30 L MCV 91 MCH 31 MCHC 34 RDW 12 Plt Count 126 L MPV 7.7 Neut % (Auto) 75.3 Lymph % (Auto) 15.2 L [place] % (Auto) 8.1 H Eos % (Auto) 1.1 Baso % (Auto) 0.3 Absolute Neuts (auto) 4.9 Absolute Lymphs (auto) 1.0 Absolute Monos (auto) 0.5 Absolute Eos (auto) 0.1 Absolute Basos (auto) 0 Absolute Nucleated RBC 0 Nucleated RBC % 0 INR (Anticoag Therapy) 1.11 H APTT 28.9 Sodium 137 Potassium 3.6 Chloride 105 Carbon Dioxide 27 Anion Gap 5 BUN 8 Creatinine 0.62 Est GFR ( Amer) 128.4 Est GFR (Non-Af Amer) 106.1 BUN/Creatinine Ratio 12.9 Glucose 87 Calcium 8.1 L [] Assessment:doing well;possible discharge home today [] Plan:review above with Dr Ni for further planning []
--- NOTE | 2017-12-27 10:26 | PN ---
Progress Note - Progress Note Date of Service: 12/27/17 Note: ANDRZEJ drain removed from lower abdomen,pt tolerated well MORIS Pearson 12/27/17 1027
[2017-12-27 12:58] VITALS: BP 121/62
--- NOTE | 2017-12-27 22:46 | DS ---
DISCHARGE SUMMARY: DATE OF ADMISSION: 12/24/17 DATE OF DISCHARGE: 12/27/17 PRINCIPAL ADMITTING DIAGNOSIS: Perforated appendicitis with abscess. OPERATIVE PROCEDURE ON ADMISSION: Laparoscopic appendectomy and placement of drain. HOSPITAL COURSE: The patient is a 42-year-old female, came to the hospital and was found to have a perforated appendicitis with an abscess. She was taken to the operating room where she underwent laparoscopic appendectomy, drainage of the abscess, placement of drain. She was maintained on intravenous antibiotics. By the third day, the drainage was down nicely. Her white blood count had returned to normal. She was not having fevers. She was tolerating oral intake, moving her bowels and not having any fevers. At that point, the drain was removed and she is discharged home on oral antibiotics and she will follow up in the office in the near future. [id number]/[facility] #: [id number] MTDD
== END 2017-12-27 13:00 | disposition home or self-care (01) | DRG 340 ==
LOC: ED 04:22 → SSU 11:09 → OBSVTOIN 16:30
PROVIDERS: ADMIT Surgery; ATTEND Surgery
PROC: 0W9G4ZZ Drainage of Peritoneal Cavity, Percutaneous Endoscopic Approach (ICD-10-PCS; 2017-12-24)
PROC: 0DTJ4ZZ Resection of Appendix, Percutaneous Endoscopic Approach (ICD-10-PCS; principal; 2017-12-24 13:00)
DX: K35.33 Acute appendicitis with perforation, localized peritonitis, and gangrene, with abscess (principal); N83.201 Unspecified ovarian cyst, right side; N92.6 Irregular menstruation, unspecified; Z88.0 Allergy status to penicillin; Z82.49 Family history of ischemic heart disease and other diseases of the circulatory system; Z72.89 Other problems related to lifestyle
CPT/HCPCS: 36415; 74177; 76830; 80048; 80053; 81003; 82150; 83605; 83690; 83735; 84702; 85025; 85610; 85730; 86140; 87070; 87076; 87077; 87186; 87205; 87480; 87491; 87510; 87591; 87640; 87641; 87661; 88304; 99284; A9270-GY; C1776; J0330; J0696; J0744; J1644; J1885; J2250; J2270; J2405; J2704; J2765; J3010; J3490; Q9967